=== PATIENT | male | born 1945 | race Caucasian/White ===

== ENCOUNTER → 2016-06-12 | Outpatient (CLI) | payer BC ==
[~2016-06-12] MED LIST: ASPI-496 PO; CLOP75TA22 PO; DOCU-30 PO; FOSI10TA PO; FURO-93 PO; HYDR-3307 PO; METO25TA35 PO; NAPR500T3 PO; POTA10TA5 PO; PRAV40TA2 PO
== END | disposition home or self-care (01) ==
LOC: CFH 08:51
PROVIDERS: ATTEND Internal Medicine Cardiovascular Disease
DX: I25.10 Atherosclerotic heart disease of native coronary artery without angina pectoris (principal); M62.20 Nontraumatic ischemic infarction of muscle, unspecified site; Z95.1 Presence of aortocoronary bypass graft
CPT/HCPCS: 78452; 93017; A9502

== ENCOUNTER 2017-10-30 11:58 | Emergency (ER) | payer BC ==
[~2017-10-30] VITALS: Ht 167.6 cm; Wt 94.5 kg
[~2017-10-30 11:58] MED LIST changes: -CLOP75TA22 PO; +CLOP75TA52 PO; +DOCU-131 PO; -DOCU-30 PO; +NAPR-685 PO; -NAPR500T3 PO
[2017-10-30 12:00] VITALS: BP 168/94
[2017-10-30] MEDS ORDERED: DIPH,PERTUSS(ACELL),TET VAC/PF 0.5 ML IM-VACC ONE ×2 (13:26→13:30)
== END 2017-10-30 13:39 | disposition home or self-care (01) ==
LOC: ED 13:33
DX: S50.12XA Contusion of left forearm, initial encounter (principal); S80.212A Abrasion, left knee, initial encounter; S80.812A Abrasion, left lower leg, initial encounter; W01.0XXA Fall on same level from slipping, tripping and stumbling without subsequent striking against object, initial encounter; Y93.01 Activity, walking, marching and hiking; Y92.89 Other specified places as the place of occurrence of the external cause; Y99.8 Other external cause status
CPT/HCPCS: 90471; 90715; 99284

== ENCOUNTER → 2018-06-24 | Outpatient (CLI) | payer BC | END | disposition home or self-care (01) | LOC: CFH 09:05 | PROVIDERS: ATTEND Internal Medicine Cardiovascular Disease | DX: I99.8 Other disorder of circulatory system (principal); Z95.1 Presence of aortocoronary bypass graft | CPT/HCPCS: 78452; 93017; A9502 ==

== ENCOUNTER → 2019-06-23 | Outpatient (CLI) | payer BC ==
[~2019-06-23] MED LIST changes: -FOSI10TA PO; +FOSI10TA2 PO; -HYDR-3307 PO; +HYDR-36 PO
== END | disposition home or self-care (01) ==
LOC: CFH 08:33
PROVIDERS: ATTEND Internal Medicine Cardiovascular Disease
DX: I21.19 ST elevation (STEMI) myocardial infarction involving other coronary artery of inferior wall (principal); I10 Essential (primary) hypertension; Z95.1 Presence of aortocoronary bypass graft
CPT/HCPCS: 78452; 93017; A9502